=== PATIENT | male | born 1980 | race Caucasian/White ===

== ENCOUNTER 2020-06-14 10:24 | Outpatient (CLI) | payer BC ==
--- NOTE | 2020-06-14 10:49 | RAD ---
EXAM: 3 views of the right wrist HISTORY: Wrist pain after fall on March 31 COMPARISON: None FINDINGS: 3 views of the right wrist shows no evidence of acute fracture or dislocation. No soft tiss ue swelling is seen. No degenerative changes are present. IMPRESSION: No evidence of acute osseous abnormality.
--- NOTE | 2020-06-14 10:50 | RAD ---
XR Hand Rt 3 View STANDARD HISTORY: Right hand pain, injury. Patient fell on March 31, 2020. Pain in the third-fifth metacarpals. FINDINGS: No fracture or dislocation is identified.
== END 2020-06-14 10:25 | disposition home or self-care (01) ==
LOC: BICRAD 10:24
PROVIDERS: ATTEND Family Medicine
DX: M79.641 Pain in right hand (principal)